=== PATIENT | male | born 1940 | race Caucasian/White ===

== ENCOUNTER 2016-10-09 08:21 | Inpatient (IN) | payer OTHER ==
[~2016-10-09] VITALS: Ht 180.3 cm; Wt 83.9 kg
--- NOTE | 2016-10-09 08:29 | ED MVC/FALL/TRAUMA COMPLAINT ---
History of Present Illness General Chief Complaint: Hip Injury Stated Complaint: BIBA HIP INJURY S/P FALL Source: patient Exam Limitations: no limitations Vital Signs & Intake/Output Vital Signs & Intake/Output Vital Signs Date Time Temp Pulse Resp B/P Pulse O2 O2 Flow FiO2 Ox Delivery Rate 10/09 1049 98.6 76 18 142/84 98 Room Air 10/09 0943 98.6 76 18 178/99 98 Room Air 10/09 0827 96.0 82 14 187/97 99 Room Air Allergies Coded Allergies: Penicillins (Severe, ANAPHYLAXIS 10/09/16) Reconcile Medications Amlodipine Besylate 5 MG TABLET 1 TAB PO DAILY HEART (Reported) Diazepam 5 MG TABLET 1 TAB PO BIDP PRN ANXIETY (Reported) Simvastatin (Simvastatin*) 20 MG TABLET 1 TAB PO DAILY CHOLESTEROL (Reported) Testosterone (Androgel) 40.5 MG/2.5 GRAM (1.62 %) GEL.PACKET 1 PAC TOP UNKNOWN (Reported) Zolpidem Tartrate 10 MG TABLET 1 TAB PO QPM SLEEP (Reported) Triage Nurses Notes Reviewed? yes Onset: Abrupt Duration: constant Timing: single episode today Severity: severe Severity Numbers: 10 Injuries/Fall Location: lower extremity HPI: Patient is a 75 year old male with a past medical history of anxiety, hypertension, hyperlipidemia, right hip replacement, left knee replacement who was in his normal state of health today patient states that he had a mechanical fall tripping on his rug in his private residence where he landed to the left aspect of his hip to the ground. Patient denies any preceding episode of lightheadedness or dizziness. Denies any head strike or loss of consciousness. Patient states that he's been unable to move his leg since. Patient crawled to the phone to call EMS. EMS arrived on scene and were concerned of shortening of the left leg for hip fracture. Patient denies any neck pain and headache back pain and abdominal pain Patient does that partially 5 weeks ago he had another mechanical fall where he twisted his left knee and his had mild pain since. Denies any alcohol use today (ALYSIA BOSS) Past History Travel History Traveled to [place] past 21 day No Medical History Any Pertinent Medical History? see below for history Neurological: NONE EENT: NONE Cardiovascular: hypertension Respiratory: NONE Gastrointestinal: NONE Hepatic: NONE Renal: NONE Musculoskeletal: NONE Psychiatric: anxiety, depression Endocrine: NONE Blood Disorders: NONE Cancer(s): NONE PROFESSOR OF GENETICS/Reproductive: NONE Surgical History Surgical History: RIGHT HIP REPLACEMENT, LEFT KNEE REPLACEMENT Psychosocial History What is your primary language B[place]wanan Tobacco Use: Quit >30 days ago Family History Hx Contributory? No (ALYSIA BOSS) Review of Systems Review of Systems Constitutional: Reports: no symptoms. Eyes: Reports: no symptoms. Ears, Nose, Throat, Mouth: Reports: no symptoms. Respiratory: Reports: no symptoms. Cardiovascular: Reports: no symptoms. Gastrointestinal/Abdominal: Reports: no symptoms. Genitourinary: Reports: no symptoms. Musculoskeletal: Reports: see HPI, joint pain. Skin: Reports: no symptoms. Neurological/Psychological: Reports: no symptoms. All Other Systems: Reviewed and Negative (ALYSIA BOSS) Physical Exam Physical Exam General Appearance: no apparent distress, alert, comfortable Comments: Well-developed well-nourished person in no acute distress HEENT: Normal EENT exam, Neck: Supple, no lymphadenopathy, normal range of motion without pain or tenderness No central spinous tenderness Back: Nontender, no CVA tenderness. No central spinous tenderness Cardiovascular: Regular rate and rhythms no murmurs rubs or gallops, normal JVP Respiratory: Chest nontender. No respiratory distress.breath sounds clear to auscultation bilaterally Abdomen: Soft, nontender nondistended, no appreciable organomegaly. Normal bowel sounds. No ascites Extremity: No edema, no calf tenderness to palpation, normal and equal pulses. Left leg noted shortening, dermatomes intact, pedal pulse +2 Left hip noted gross deformity and point tenderness unable to move hip Left knee-denies point tenderness noted Neuro: Alert oriented x3, motor sensory normal, cranial nerves II through XII grossly intact. Skin: No appreciable rash on exposed skin, skin is warm and dry. Psych: Mood and affect is normal, memory and judgment is normal. Core Measures ACS in differential dx? No Severe Sepsis Present: No Septic Shock Present: No (ALYSIA BOSS) Progress Differential Diagnosis: abd injury, C/T/L spine injury, ext injury, ICH, pelvis injury, pnemothorax, spinal cord injury, HIP FRACTURE Plan of Care: Orders Procedure Date/time Status PT Evaluate & Treat 10/10 1014 Active CBC WITHOUT DIFFERENTIAL 10/10 0600 Active BASIC ELECTROLYTES PLUS BUN&CR 10/10 0600 Active Nothing by Mouth 10/09 L Active Pathway - chart 10/09 1014 Active Patient Data 10/09 1014 Active Code Status 10/09 1014 Active Admit to inpatient 10/09 0951 Active PARTIAL THROMBOPLASTIN TIME 10/09 0828 Complete PROTHROMBIN TIME 10/09 0828 Complete COMPREHENSIVE METABOLIC PANEL 10/09 08 Complete CBC WITHOUT DIFFERENTIAL 10/09 0828 Complete EKG 10/09 08 Active TYPE & SCREEN (NOT X-MATCH) 10/09 0828 Complete Admit to inpatient 10/09 UNK Active Wound Care/Dressing 10/09 UNK Active VTE Mechanical Prophylaxis 10/09 UNK Active Vital Signs 10/09 UNK Active Heat/Cold Therapy 10/09 UNK Active Activity/Ambulation 10/09 UNK Active Current Medications Sig/Luis Start time Last Medication Dose Stop Time Status Admin Atorvastatin Calcium 10 MG 1700 10/10 1700 AC (Lipitor) Amlodipine Besylate 5 MG DAILY 10/10 1000 AC (Norvasc) Diazepam 5 MG Q12P PRN 10/09 2200 AC (Valium) Morphine Sulfate 4 MG Q3P PRN 10/09 1015 AC (Morphine) Ondansetron HCl 4 MG Q6P PRN 10/09 1015 AC (Zofran) Promethazine HCl 12.5 MG Q6P PRN 10/09 1015 AC (Phenergen) 10/16 1014 Laboratory Tests 10/09/16 0838: Anion Gap 11, Estimated GFR 59 L, BUN/Creatinine Ratio 16.7, Glucose 91, Calcium 9.5, Total Bilirubin 0.5, AST 27, ALT 29, Alkaline Phosphatase 95, Total Protein 7.8, Albumin 4.4, Globulin 3.4, Albumin/Globulin Ratio 1.3, PT 10.8, INR 1.03, APTT 33, CBC w Diff NO MAN DIFF REQ, RBC 4.77, MCV 90.0, MCH 30.2, RDW 13.0, MPV 7.8, Gran % 63.0, Lymphocytes % 24.6, Monocytes % 9.2, Eosinophils % 2.8, Basophils % 0.4, Absolute Granulocytes 5.0, Absolute Lymphocytes 1.9, Absolute Monocytes 0.7 H, Absolute Eosinophils 0.2, Absolute Basophils 0, PUBS MCHC 33.5 Patient's distal extremities were neurovascularly intact. Patient does have concerns of left hip fracture Denies any head strike denies any cervical or low back pain from the injury.\ Discussed admission with surgical KRISTA and orthopedic Dr. Suarez who advised patient to be placed under their service patient was advised to be placed under nothing by mouth medicine was consult at Patient is currently resting comfortably after multiple doses of morphine. (ALYSIA BOSS) Diagnostic Imaging: Viewed by Me: Radiology Read. Radiology Impression: fracture Initial ED EKG: normal p-waves, normal QRS complex, normal sinus rhythm, 87 BPM Comments: PATIENT: RAMY TRIVEDI PRESENT AGE: 75 PATIENT ACCOUNT NO: [id number] : 39 LOCATION: [facility] ORDERING PHYSICIAN: ALYSIA VELASCO SERVICE DATE: 10/09/16 EXAM TYPE: RAD - XRY-HIP 2-3 VIEWS, LEFT; XRY-KNEE COMPLETE LEFT; XRY-PORTABLE CHEST XRAY EXAMINATION: Chest, left hip and left knee. CLINICAL INFORMATION: Possible hip fracture. COMPARISON: None TECHNIQUE: Portable AP view of the chest was obtained. Left knee 2 views. Left hip 2 views. FINDINGS: CHEST: Both lungs are fairly well-expanded and clear of acute process. The heart size and pulmonary vascularity is normal. No gross bony abnormality seen. There are bilateral shoulder prosthesis in place. LEFT HIP: There is a comminuted intertrochanteric left hip fracture. No dislocation. The soft tissues are normal. No additional fracture of the left hemipelvis. LEFT KNEE: There is total left knee prosthesis with prosthetic components in satisfactory alignment. No visible fracture. There is small to moderate suprapatellar joint effusion. IMPRESSION: Comminuted left hip intertrochanteric fracture. No dislocation. Total left knee prosthesis in alignment. No fracture seen. There is [id number] left suprapatellar joint effusion. Unremarkable chest exam. DICTATED BY: PERLITA GODFREY MD DATE/TIME DICTATED:10/09/16922 TAPPER BALANCE WHEEL SCREW HOLE:SYEDA DATE/TIME TRANSCRIBED:10/09/16922 (ALYSIA BOSS) Departure Departure Disposition: STILL A PATIENT Condition: Stable Clinical Impression Primary Impression: Intertrochanteric fracture of left hip Secondary Impressions: Fall Referrals: JAY WINSLOW MD Departure Forms: Customer Survey General Discharge Information Admission Note Spoke With: FARZANEH SUAREZ MD Documentation of Exam: Documentation of any treatments & extenuating circumstances including Concerns Regarding Discharge (functional status, medication knowledge or non-compliance, living conditions, etc.) that warrant an admission rather than observation: [ Discussed patient with Dr. Suarez who advised patient to be placed under her service for concerns of left intratrochanteric fracture patient requires surgical intervention, IV pain management, and possible rehabilitation. Outpatient treatment at this time would be medically harmful.] (ALYSIA BOSS) PA/SEAFOOD FARMER Co-Sign Statement Statement: ED Attending supervision documentation- [X] I saw and evaluated the patient. I have also reviewed all the pertinent lab results and diagnostic results. I agree with the findings and the plan of care as documented in the PA's/SEAFOOD FARMER's documentation. [X] I have reviewed the ED Record and agree with the PA's/SEAFOOD FARMER's documentation. [] Additions or exceptions (if any) to the PAs/SEAFOOD FARMER's note and plan are summarized below: [] (ALYSSA ZENDEJAS,DAYRON Jj) Critical Care Note Critical Care Note Critical Care Time: 30-74 min (ALYSIA BOSS) (ALYSIA BOSS)
--- NOTE | 2016-10-09 08:38 | NUR ---
75 Y/O MALE BIBA FROM HOME FOR EVAL OF L HIP PAIN S/P FALL. PT ARRIVES A/O X 4; STATES HE TRIPPED THIS MORNING AND FELL ONTO L SIDE. C/O L HIP PAIN. DENIES STRIKING HEAD OR LOC. L LOWER EXTERMITY EXTERNALLY ROTATED AND SHORTENED. +PULSES. PT DENIES COMPLAINTS OTHER THAN L HIP PAIN PT CHANGED INTO [facility] INTO EVAL.
--- NOTE | 2016-10-09 08:42 | NUR ---
IV EST. PT MEDICATED PER EMAR AT THIS TIME. PT TO XRAY VIA STRETCHER
[2016-10-09 08:46] LABS: ABSOLUTE BASOPHIL COUNT 0 /CUMM (0.0-0.2); ABSOLUTE EOSINOPHIL COUNT 0.2 /CUMM (0.0-0.7); ABSOLUTE LYMPH COUNT 1.9 /CUMM (1.2-3.4); ABSOLUTE MONOCYTE COUNT 0.7 /CUMM (0.10-0.60); BASOPHIL % 0.4 % (0.0-2.0); EOSINOPHIL % 2.8 % (0-5); HEMATOCRIT 42.9 % (42-52); MEAN CORPUSCULAR HGB 30.2 PG (27.0-31.0); MEAN CORPUSCULAR HGB CONC 33.5 G/DL (33.0-37.0); MEAN PLATELET VOLUME 7.8 FL (7.4-10.4); PLATELET COUNT 221 /CUMM (130-400); RED BLOOD CELL CT 4.77 /CUMM (4.70-6.10); WHITE BLOOD CELL COUNT 7.9 /CUMM (4.8-10.8)
[2016-10-09 08:55] LABS: PT 10.8 SEC (9.4-12.5); PTT 33 SEC (25-37)
--- NOTE | 2016-10-09 09:13 | NUR ---
PT MEDICATED WITH 6MG IV MORPHINE PER ORDER AT THIS TIME. PT STATES PAIN IS 9/10.
[2016-10-09] MEDS ORDERED: DIAZEPAM5 M1 PO (09:15)
[2016-10-09] MEDS ORDERED: SIMVASTATIN20 M2 PO (09:15)
[2016-10-09] MEDS ORDERED: ANDROGEL2.5 G1 TOP (09:15)
[2016-10-09] MEDS ORDERED: AMLODIPINE BESYL5 M1 PO (09:15)
[2016-10-09] MEDS ORDERED: ZOLPIDEM TARTRA10 M1 PO (09:16)
--- NOTE | 2016-10-09 09:29 | RADIOLOGY REPORT ---
EXAMINATION: Chest, left hip and left knee. CLINICAL INFORMATION: Possible hip fracture. COMPARISON: None TECHNIQUE: Portable AP view of the chest was obtained. Left knee 2 views. Left hip 2 views. FINDINGS: CHEST: Both lungs are fairly well-expanded and clear of acute process. The heart size and pulmonary vascularity is normal. No gross bony abnormality seen. There are bilateral shoulder prosthesis in place. LEFT HIP: There is a comminuted intertrochanteric left hip fracture. No dislocation. The soft tissues are normal. No additional fracture of the left hemipelvis. LEFT KNEE: There is total left knee prosthesis with prosthetic components in satisfactory alignment. No visible fracture. There is small to moderate suprapatellar joint effusion. IMPRESSION: Comminuted left hip intertrochanteric fracture. No dislocation. Total left knee prosthesis in alignment. No fracture seen. There is egqqe-oc-[id number] left suprapatellar joint effusion. Unremarkable chest exam.
--- NOTE | 2016-10-09 09:34 | NUR ---
SURGICAL PA AT BEDSIDE FOR EVAL
--- NOTE | 2016-10-09 09:42 | NUR ---
PT MEDICATED WITH ADDITIONAL 4MG MORHPINE PER ORDER AT THIS TIME. BP 179/99. SURGICAL PA REMAINS AT BEDSIDE.
--- NOTE | 2016-10-09 10:37 | History & Physical Pre-Op ---
DONNA TINOCO 10/09/16 1017: General Information and HPI MD Statement: I have seen and personally examined RAMY TRIVEDI and documented this H&P. The patient is a 75 year old M who presented with a patient stated chief complaint of [LEFT HIP PAIN S/P FALL]. Source of Information: patient, old records History of Present Illness: Patient is a 75 year old male with a past medical history of anxiety, hypertension, hyperlipidemia, right hip replacement, left knee replacement, bilateral total shoulder replacements, cervical and lumbar spinal fusions, who was in his normal state of health today. Patient states that he had a mechanical fall tripping on his rug in his private residence where he landed to the left aspect of his hip to the ground. Patient denies any preceding episode of lightheadedness or dizziness. Denies any head strike or loss of consciousness. Patient states that he's been unable to move his leg since. Patient crawled to the phone to call EMS. EMS arrived on scene and were concerned of shortening of the left leg for hip fracture. Patient denies any neck pain and headache back pain and abdominal pain. Patient does note that approximately 5 weeks ago he had another mechanical fall where he twisted his left knee and his had mild pain since. He notes instability to his left knee on occasion but states that he had multiple evaluations by both an urgent care where xrays were obtained and an orthopedic surgeon who ruled out any instability to the knee and ruled out any need for futher intervention. His last by mouth intake was 6am this morning. He denies any alcohol use today. Allergies/Medications Allergies: Coded Allergies: Penicillins (Severe, ANAPHYLAXIS 10/09/16) Home Med list Amlodipine Besylate 5 MG TABLET 1 TAB PO DAILY HEART (Reported) Diazepam 5 MG TABLET 1 TAB PO BIDP PRN ANXIETY (Reported) Simvastatin (Simvastatin*) 20 MG TABLET 1 TAB PO DAILY CHOLESTEROL (Reported) Testosterone (Androgel) 40.5 MG/2.5 GRAM (1.62 %) GEL.PACKET 1 PAC TOP UNKNOWN (Reported) Zolpidem Tartrate 10 MG TABLET 1 TAB PO QPM SLEEP (Reported) Past History Medical History Neurological: NONE EENT: NONE Cardiovascular: hypertension, hyperlipidemia Respiratory: NONE Gastrointestinal: NONE Hepatic: NONE Renal: NONE Musculoskeletal: NONE Psychiatric: anxiety, depression Endocrine: NONE Blood Disorders: NONE Cancer(s): NONE CAUSE ANALYST/Reproductive: NONE Surgical History Pertinent Surgical History: spinal fusion, RIGHT HIP REPLACEMENT LEFT KNEE REPLACEMENT, Bilateral Shoulder Replacements Review of Systems Review of Systems Constitutional: Reports: see HPI. Denies: weakness. EENTM: Reports: no symptoms. Cardiovascular: Reports: no symptoms. Denies: chest pain, palpitations, syncope. Respiratory: Reports: no symptoms. GI: Reports: no symptoms. Genitourinary: Reports: no symptoms. Musculoskeletal: Reports: see HPI. Skin: Reports: no symptoms. Neurological/Psychological: Reports: anxiety, depressed. Hematologic/Endocrine: Reports: no symptoms. Immunologic/Allergic: Reports: no symptoms. All Other Systems: Reviewed and Negative Exam & Diagnostic Data Last 24 Hrs of Vital Signs/I&O Vital Signs Date Time Temp Pulse Resp B/P Pulse O2 O2 Flow FiO2 Ox Delivery Rate 10/09 0943 98.6 76 18 178/99 98 Room Air 10/09 0827 96.0 82 14 187/97 99 Room Air Intake & Output 10/09 1600 10/09 0800 10/09 0000 Intake Total Output Total Balance Patient 185 lb Weight Physical Exam: General: Alert and oriented x3, no acute distress Cardiac: RRR, s1s2 Pulmonary: CTA bilaterally Abdomen: Non-tender, non-distended Extremities: Left leg shortened and internally rotated, distal senstions intact. Skin warm and well perfused, no peripheral edema appreciated. Left knee mild effusion palpated. Last 24 Hrs of Labs/Delon: Laboratory Tests 10/09/16 0838: Anion Gap 11, Estimated GFR 59 L, BUN/Creatinine Ratio 16.7, Glucose 91, Calcium 9.5, Total Bilirubin 0.5, AST 27, ALT 29, Alkaline Phosphatase 95, Total Protein 7.8, Albumin 4.4, Globulin 3.4, Albumin/Globulin Ratio 1.3, PT 10.8, INR 1.03, APTT 33, CBC w Diff NO MAN DIFF REQ, RBC 4.77, MCV 90.0, MCH 30.2, RDW 13.0, MPV 7.8, Gran % 63.0, Lymphocytes % 24.6, Monocytes % 9.2, Eosinophils % 2.8, Basophils % 0.4, Absolute Granulocytes 5.0, Absolute Lymphocytes 1.9, Absolute Monocytes 0.7 H, Absolute Eosinophils 0.2, Absolute Basophils 0, PUBS MCHC 33.5 Diagnostic Data Other Results HIP XRAY: PATIENT: RAMY TRIVEDI PRESENT AGE: 75 PATIENT ACCOUNT NO: [id number] : 39 LOCATION: ER ORDERING PHYSICIAN: ALYSIA VELASCO SERVICE DATE: 10/09/16 EXAM TYPE: RAD - XRY-HIP 2-3 VIEWS, LEFT; XRY-KNEE COMPLETE LEFT; XRY-PORTABLE CHEST XRAY EXAMINATION: Chest, left hip and left knee. CLINICAL INFORMATION: Possible hip fracture. COMPARISON: None TECHNIQUE: Portable AP view of the chest was obtained. Left knee 2 views. Left hip 2 views. FINDINGS: CHEST: Both lungs are fairly well-expanded and clear of acute process. The heart size and pulmonary vascularity is normal. No gross bony abnormality seen. There are bilateral shoulder prosthesis in place. LEFT HIP: There is a comminuted intertrochanteric left hip fracture. No dislocation. The soft tissues are normal. No additional fracture of the left hemipelvis. LEFT KNEE: There is total left knee prosthesis with prosthetic components in satisfactory alignment. No visible fracture. There is small to moderate suprapatellar joint effusion. IMPRESSION: Comminuted left hip intertrochanteric fracture. No dislocation. Total left knee prosthesis in alignment. No fracture seen. There is mshqt-[id number] left suprapatellar joint effusion. Unremarkable chest exam. DICTATED BY: PERLITA GODFREY MD DATE/TIME DICTATED:10/09/16922 TIP FINISHER:SYEDA DATE/TIME TRANSCRIBED:10/09/16922 CONFIDENTIAL, DO NOT COPY WITHOUT APPROPRIATE AUTHORIZATION. <Electronically signed in Other Vendor System> SIGNED BY: PERLITA GODFREY MD 10/09/16928 KNEE XRAY: PATIENT: RAMY TRIVEDI PRESENT AGE: 75 PATIENT ACCOUNT NO: [id number] : 39 LOCATION: [facility] ORDERING PHYSICIAN: ALYSIA VELASCO SERVICE DATE: 10/09/16 EXAM TYPE: RAD - XRY-HIP 2-3 VIEWS, LEFT; XRY-KNEE COMPLETE LEFT; XRY-PORTABLE CHEST XRAY EXAMINATION: Chest, left hip and left knee. CLINICAL INFORMATION: Possible hip fracture. COMPARISON: None TECHNIQUE: Portable AP view of the chest was obtained. Left knee 2 views. Left hip 2 views. FINDINGS: CHEST: Both lungs are fairly well-expanded and clear of acute process. The heart size and pulmonary vascularity is normal. No gross bony abnormality seen. There are bilateral shoulder prosthesis in place. LEFT HIP: There is a comminuted intertrochanteric left hip fracture. No dislocation. The soft tissues are normal. No additional fracture of the left hemipelvis. LEFT KNEE: There is total left knee prosthesis with prosthetic components in satisfactory alignment. No visible fracture. There is small to moderate suprapatellar joint effusion. IMPRESSION: Comminuted left hip intertrochanteric fracture. No dislocation. Total left knee prosthesis in alignment. No fracture seen. There is qbhbt-md-bqrtdnbm left suprapatellar joint effusion. Unremarkable chest exam. CHEST XRAY: PATIENT: RAMY TRIVEDI PRESENT AGE: 75 PATIENT ACCOUNT NO: [id number] : 39 LOCATION: [facility] ORDERING PHYSICIAN: ALYSIA VELASCO SERVICE DATE: 10/09/16 EXAM TYPE: RAD - XRY-HIP 2-3 VIEWS, LEFT; XRY-KNEE COMPLETE LEFT; XRY-PORTABLE CHEST XRAY EXAMINATION: Chest, left hip and left knee. CLINICAL INFORMATION: Possible hip fracture. COMPARISON: None TECHNIQUE: Portable AP view of the chest was obtained. Left knee 2 views. Left hip 2 views. FINDINGS: CHEST: Both lungs are fairly well-expanded and clear of acute process. The heart size and pulmonary vascularity is normal. No gross bony abnormality seen. There are bilateral shoulder prosthesis in place. LEFT HIP: There is a comminuted intertrochanteric left hip fracture. No dislocation. The soft tissues are normal. No additional fracture of the left hemipelvis. LEFT KNEE: There is total left knee prosthesis with prosthetic components in satisfactory alignment. No visible fracture. There is small to moderate suprapatellar joint effusion. IMPRESSION: Comminuted left hip intertrochanteric fracture. No dislocation. Total left knee prosthesis in alignment. No fracture seen. There is rnsvj-[id number]-tnbbpjep left suprapatellar joint effusion. Unremarkable chest exam. DICTATED BY: PERLITA GODFREY MD DATE/TIME DICTATED:10/09/16922 TIP FINISHER:SYEDA DATE/TIME TRANSCRIBED:10/09/16922 CONFIDENTIAL, DO NOT COPY WITHOUT APPROPRIATE AUTHORIZATION. <Electronically signed in Other Vendor System> SIGNED BY: EPIFANIO ZENDEJASPERLITA 10/09/16 0929 Assessment/Plan Assessment/Plan: This is a 75 year old male admitted to surgical service today with complaints of left hip pain s/p mechanical fall and intertrochanteric fracture. PMH includes HTN, HLD, Anxiety, Depression. PSH includes left knee replacement, right hip replacement, bilateral shoulder replacements, and lumbar and cervical spinal fusions. -NPO -Home meds to continue post op -IV morphine and offirmev for pain control for now -stat type and screen -pre-op chest xray and ekg -Medical clearance needed, Dr. Mcfarland contacted -Discussed with Dr. Duran -Dr Duran to do ORIF likely this evening, possibly tomorrow am pending medical clearance As Ranked By This Provider Problem List: 1. Intertrochanteric fracture of left hip ERICK ZENDEJAS,FARZANEH 10/09/162043: Attending MD Review Statement Attending Statement Attending MD Statement: examined this patient, discuss w/resident/PA/BRAND REPRESENTATIVE, agreed w/resident/PA/BRAND REPRESENTATIVE, reviewed images Attending Assessment/Plan: Patient seen and examined. Acute left hip pain, but also complains of chronic left knee pain for several weeks (has previously been seen twice by treating Orthopedic without intervention). Plan for ORIF left hip with sliding hip screw/side plate. Will need post-op anticoagulation and monitoring.
--- NOTE | 2016-10-09 10:38 | Admission Core Measures ---
Admission Lab Results I reviewed the following labs: Laboratory Tests 10/09 0838 Chemistry Sodium (137 - 145 mmol/L) 137 Potassium (3.5 - 5.1 mmol/L) 4.4 Chloride (98 - 107 mmol/L) 100 Carbon Dioxide (22 - 30 mmol/L) 25 Anion Gap (5 - 16) 11 BUN (9 - 20 mg/dL) 20 Creatinine (0.7 - 1.2 mg/dL) 1.2 Estimated GFR (>60 ml/min) 59 L BUN/Creatinine Ratio (7 - 25 %) 16.7 Glucose (65 - 99 mg/dL) 91 Calcium (8.4 - 10.2 mg/dL) 9.5 Total Bilirubin (0.2 - 1.3 mg/dL) 0.5 AST (17 - 59 U/L) 27 ALT (21 - 72 U/L) 29 Alkaline Phosphatase (< 127 U/L) 95 Total Protein (6.3 - 8.2 g/dL) 7.8 Albumin (3.5 - 5.0 g/dL) 4.4 Globulin (1.9 - 4.2 gm/dL) 3.4 Albumin/Globulin Ratio (1.1 - 2.2 %) 1.3 Coagulation PT (9.4 - 12.5 SEC) 10.8 INR (0.90 - 1.17) 1.03 APTT (25 - 37 SEC) 33 Hematology CBC w Diff NO MAN DIFF REQ WBC (4.8 - 10.8 /CUMM) 7.9 RBC (4.70 - 6.10 /CUMM) 4.77 Hgb (14.0 - 18.0 G/DL) 14.4 Hct (42 - 52 %) 42.9 MCV (80.0 - 94.0 FL) 90.0 MCH (27.0 - 31.0 PG) 30.2 RDW (11.5 - 14.5 %) 13.0 Plt Count (130 - 400 /CUMM) 221 MPV (7.4 - 10.4 FL) 7.8 Gran % (42.2 - 75.2 %) 63.0 Lymphocytes % (20.5 - 51.1 %) 24.6 Monocytes % (1.7 - 9.3 %) 9.2 Eosinophils % (0 - 5 %) 2.8 Basophils % (0.0 - 2.0 %) 0.4 Absolute Granulocytes (1.4 - 6.5 /CUMM) 5.0 Absolute Lymphocytes (1.2 - 3.4 /CUMM) 1.9 Absolute Monocytes (0.10 - 0.60 /CUMM) 0.7 H Absolute Eosinophils (0.0 - 0.7 /CUMM) 0.2 Absolute Basophils (0.0 - 0.2 /CUMM) 0 PUBS MCHC (33.0 - 37.0 G/DL) 33.5 Admission Meds I reviewed the following Meds: Current Medications Sig/Luis Start time Last Medication Dose Stop Time Status Admin Acetaminophen 1,000 MG Q6P PRN 10/09 1015 UNVr (Ofirmev) 10/10 1007 Amlodipine Besylate 5 MG DAILY 10/10 1000 UNVr (Norvasc) Amlodipine Besylate 5 MG ONCE ONE 10/09 1030 UNVr (Norvasc) 10/09 1031 Atorvastatin Calcium 10 MG 1700 10/10 1700 UNVr (Lipitor) Diazepam 5 MG Q12P PRN 10/09 2200 UNVr (Valium) Morphine Sulfate 4 MG Q3P PRN 10/09 1015 UNVr (Morphine) Ondansetron HCl 4 MG Q6P PRN 10/09 1015 AC (Zofran) Promethazine HCl 12.5 MG Q6P PRN 10/09 1015 AC (Phenergen) 10/16 1014 Sodium Chloride 1,000 ML .Q10H 10/09 1015 UNVr (Normal Saline 0.9%) Acute Coronary Syndrome Inclusion Criteria ACS Diagnosis No Inpatient Core Measures LDL Reminder: If No, please order W/I first 24hr of stay Congestive Heart Failure Inclusion Criteria CHF Diagnosis No Cerebrovascular accident Inclusion Criteria CVA/TIA Diagnosis No Inpatient Core Measures Bedside Swallow Eval Reminder: If BSE failed, place ST order Antithrombotic Reminder: Order Antithrombotic Medication by end of day 2 Antithrombotic Reminder: Document Reason Antithrombotic Not ordered by end of day 2 AFIB/Flutter Reminder: If Present, add to problem list AFIB/Flutter Reminder: Order Anticoag Medication for pts with AFIB/Flutter Atherosclerosis Reminder: If Present, add to problem list LDL Reminder: If No, please order W/I first 24hr of stay PT Order Reminder: If No, please order Venous thromboembolism Inpatient Core Measures VTE Risk Factors: Age > 40, Surgery No Mech VTE prophylaxis d/t No contraindications No VTE Pharm Prophylaxis d/t No contraindications Inclusion Criteria - Per Current guidelines, there needs to be overlap - treatment for the first 5 days of Warfarin therapy. - Parenteral Anticoagulation (IV or SC) needs to be - given along with Warfarin therapy. VTE Diagnosis No VTE Type NONE VTE Confirmed by (Test) NONE Problem List As ranked by this Provider includes Assessment & Plan 1. Intertrochanteric fracture of left hip HOME MEDS Home Med List Amlodipine Besylate 5 MG TABLET 1 TAB PO DAILY HEART (Reported) Diazepam 5 MG TABLET 1 TAB PO BIDP PRN ANXIETY (Reported) Simvastatin (Simvastatin*) 20 MG TABLET 1 TAB PO DAILY CHOLESTEROL (Reported) Zolpidem Tartrate 10 MG TABLET 1 TAB PO QPM SLEEP (Reported)
--- NOTE | 2016-10-09 10:40 | NUR ---
NORMAL SALINE INFUSING AT 100ML/HR PER ORDER AT THIS TIME. PT AWARE HE IS TO REMAINS NPO AT THIS TIME. PT STATES PAIN LEVEL IS TOLERABLE RIGHT NOW. CALL BRYAN IN REACH.
--- NOTE | 2016-10-09 10:55 | Cons- Medical ---
General Information and HPI Consulting Request Date of Consult: 10/09/16 Requested By: FARZANEH SUAREZ MD Reason for Consult: PRE-OP CLEARANCE Source of Information: patient, old records Exam Limitations: no limitations History of Present Illness: This is a 75-year-old gentleman with a past history significant for hypertension , hyperlipidemia, anxiety that presented to the emergency room today after having a mechanical fall over an area rug. States that he fell on his left hip. Denies any syncope, head strike or loss of consciousness. Denies any chest pain shortness of breath, nausea, vomiting, diarrhea fevers chills recent illnesses or sick contacts. He states that last year he had his left knee operated with a prosthesis and slipped and fell on black ice about 5 weeks ago. Subsequently he went to his orthopedic surgeon Dr. Keating who took x-rays and stated that everything was okay. The medicine team today was asked to see the patient in consultation and risk stratify him prior to surgery. Allergies/Medications Allergies: Coded Allergies: Penicillins (Severe, ANAPHYLAXIS 10/09/16) Home Med List: Amlodipine Besylate 5 MG TABLET 1 TAB PO DAILY HEART (Reported) Diazepam 5 MG TABLET 1 TAB PO BIDP PRN ANXIETY (Reported) Simvastatin (Simvastatin*) 20 MG TABLET 1 TAB PO DAILY CHOLESTEROL (Reported) Testosterone (Androgel) 40.5 MG/2.5 GRAM (1.62 %) GEL.PACKET 1 PAC TOP UNKNOWN (Reported) Zolpidem Tartrate 10 MG TABLET 1 TAB PO QPM SLEEP (Reported) Review of Systems Review of Systems Constitutional: Reports: see HPI. Past History Travel History Traveled to [place] past 21 day No Medical History Neurological: NONE EENT: NONE Cardiovascular: hypertension, hyperlipidemia Respiratory: NONE Gastrointestinal: NONE Hepatic: NONE Renal: NONE Musculoskeletal: NONE Psychiatric: anxiety, depression Endocrine: NONE Blood Disorders: NONE Cancer(s): NONE REGISTERED NURSE CARDIAC/Reproductive: NONE Surgical History Surgical History: spinal fusion, RIGHT HIP REPLACEMENT LEFT KNEE REPLACEMENT Bilateral Shoulder Replacements Psychosocial History Where Do You Live? Home Who Do You Live With? self Services at Home: None Primary Language: Persian Smoking Status: Former Smoker ETOH Use: occasional use Functional Ability ADLs Independent: dressing, eating, toileting, bathing. IADLs Independent: shopping, housework, finances, food prep, telephone, transportation , medication admin. Exam & Diagnostic Data Last 24 Hrs of Vital Signs/I&O Vital Signs Date Time Temp Pulse Resp B/P Pulse O2 O2 Flow FiO2 Ox Delivery Rate 10/09 1049 98.6 76 18 142/84 98 Room Air 10/09 0943 98.6 76 18 178/99 98 Room Air 10/09 0827 96.0 82 14 187/97 99 Room Air Intake & Output 10/09 1600 10/09 0800 10/09 0000 Intake Total Output Total Balance Patient 185 lb Weight Physical Exam General Appearance: well developed/nourished, no apparent distress, alert, awake Head: atraumatic, normal appearance Ears, Nose, Throat: normal pharynx, normal ENT inspection, hearing grossly normal Respiratory: normal breath sounds, chest non-tender, no respiratory distress Cardiovascular: regular rate/rhythm, edema Gastrointestinal: normal bowel sounds, soft, non-tender Extremities: normal inspection, normal capillary refill, left lower extremity shortened and externally rotated Last 24 Hrs of Labs/Delon: Laboratory Tests 10/09/16 0838: Anion Gap 11, Estimated GFR 59 L, BUN/Creatinine Ratio 16.7, Glucose 91, Calcium 9.5, Total Bilirubin 0.5, AST 27, ALT 29, Alkaline Phosphatase 95, Total Protein 7.8, Albumin 4.4, Globulin 3.4, Albumin/Globulin Ratio 1.3, PT 10.8, INR 1.03, APTT 33, CBC w Diff NO MAN DIFF REQ, RBC 4.77, MCV 90.0, MCH 30.2, RDW 13.0, MPV 7.8, Gran % 63.0, Lymphocytes % 24.6, Monocytes % 9.2, Eosinophils % 2.8, Basophils % 0.4, Absolute Granulocytes 5.0, Absolute Lymphocytes 1.9, Absolute Monocytes 0.7 H, Absolute Eosinophils 0.2, Absolute Basophils 0, PUBS MCHC 33.5 Diagnostic Data EKG Results Normal sinus rhythm, first-degree AV block, LVH CXR Results X-ray hip knee total chest IMPRESSION: Comminuted left hip intertrochanteric fracture. No dislocation. Total left knee prosthesis in alignment. No fracture seen. There is [id number] left suprapatellar joint effusion. Unremarkable chest exam. Assessment/Plan Assessment/Plan Assessment- 1. Left intertrochanteric hip fracture status post mechanical fall 2. Hypertension 3. Hyperlipidemia Plan- - Patient's revised cardiac risk index 0.4% risk of major cardiac event; cleared for surgery - Continue all his home meds; - Maintain adequate analgesia per orthopedic team - Antiemetics when necessary - Aggressive bowel regiment given the fact that he will be on narcotic pain medication - Nothing by mouth at present for surgery - DVT prophylaxis per orthopedic team Please notify the medicine service if further assistance is required in caring for Mr. Burton. Problem List: 1. Fall 2. Intertrochanteric fracture of left hip Consult Acknowledgment - Thank you for your consult request.
--- NOTE | 2016-10-09 11:18 | NUR ---
IV TYLENOL INFUSING PER ORDER AT THIS TIME.
--- NOTE | 2016-10-09 11:29 | NUR ---
PHYSICAL THERAPY: Recieved consult orders, reviewed chart. Patient s/p mechanical fall at home with resultant L hip fracture. Per medical record, anticipated ORIF procedure to be performed later today. Physical therapy to complete evaluation s/p PODx1 w/ TTWB. Will f/u when appropriate.
--- NOTE | 2016-10-09 12:18 | NUR ---
PT RESTING ON STRETCHER AT THIS TIME. OFFERS NO COMPLAINTS. CALL BRYAN REMAINS IN REACH
[2016-10-09 13:00] VITALS: BP 105/69
--- NOTE | 2016-10-09 13:15 | NUR ---
PT MEDICATED WITH MORPHINE PER ORDER AT THIS TIME. PT REMAINS RESTING ON STRETCHER.
--- NOTE | 2016-10-09 16:54 | NUR ---
CHART READY FOR OR, PRE OP SCRUB IN PROGRESS AT THIS TIME. PT AWARE DISTRIBUTION WILL BE HERE IN APPROX 20 MINUTES TO TAKE HIM TO OR.
--- NOTE | 2016-10-09 17:27 | NUR ---
DISTRIBUTION HERE TO TAKE PT TO OR
--- NOTE | 2016-10-09 21:09 | Operative Report ---
Operative/Inv Procedure Report Surgery Date: 10/09/16 Name of Procedure: Left hip open reduction and stabilization with dynamic hip screw/side plate Pre-Operative Diagnosis: Left intertrochanteric hip fracture Post-Operative Diagnosis: Left intertrochanteric hip fracture Estimated Blood Loss: 250mL Surgeon/Paper Mill Supervisor: FARZANEH SUAREZ MD, PA-C, Mitch Anesthesia: laryngeal mask airway Implants: Synthes 135deg, 4-hole DHS plate Drains: None Specimens: None Complications: None Condition: Stable Operative/Procedure Note Note: INDICATION FOR PROCEDURE: Tomer Burton is a 75 year old male who presented to the [facility] following a mechanical ground level fall at home. He was found to have a left intertrochanteric hip fracture. He was evaluated by the medical staff prior to surgical intervention, and was deemed optimized for open reduction and stabilization of the left hip fracture. The risks, benefits, and alternatives were discussed with patient, and he consented to surgery. OPERATIVE REPORT: Mr. Burton was brought to the operating room on 10/09/2016. He was met in the pre-operaive area, where his medical history was reviewed and his operative extremity was marked. He was then taken to the OR. A time-out procedure was performed in which the patient, the operative extremity, and the procedure were verified. He was induced under general anesthesia with an LMA. Clindamycin was administered and an SCD was placed on the non-operative extremity. The patient was positioned on the fracture table around a perineal post. The left foot was secured in a well-padded traction boot. The right leg was placed over a well-leg hold in flexion and abduction and secured. Gentle traction was applied to the left leg and the leg was internally rotated. The hip was then examined with fluoroscopy on the AP and lateral views to verify the reduction. The left hip was then prepped with chloroprep twice and draped in the usual sterile fashion. Fluoroscopy was used to confirm the fracture reduction and bony landmarks. A 5cm incision was made over the lateral aspect of the tight, just below the trochanteric ridge. This was taken through the skin and subcutaneous tissues. The tensor fascia was indentified and split. The vastus lateralis was then divided and lifted anteriorly for exposure to the lateral aspect of the femur. A guide and threaded K-wire were then used to mery the trajectory of the screw. The position of the wire was verified on the AP and lateral views as it crossed the fracture and passed into the femoral head, ending in the subchondral bone. The wire was then measure at 120mm. A triple reamer set at 100mm was then taken over the wire and visualize under fluoroscopy. The reamer was then reset to 105mm and reamed again. A 110mm screw was then selected and screw into place across the fracture and along the femoral neck. Care was taken not to displace the fracture while turning the screw into place. The screw was taken down near the subchondral bone within 10mm. The 4-hole side plate was then placed over the screw barrell and tapped down until flush with the bone. The plate position was verified with AP and lateral views using fluoroscopy. Four 4.5mm cortical screws were then placed from lateral to medial across the femoral shaft, securing the plate into position. All four screws has excellent purchase in the cortical bone. Final xrays were obtained. The wound was then copiously irrigated with saline. The facia parul was closed over the vastus lateralis with 0 vicryl. The wound was then closed in layers using 0 vicryl and 2-0 vicryl, followed by bill for skin. The wound was dressed with xeroform and gauze, and secured with tegaderm. The patient's legs were removed from the traction apparatus and well-leg baez. He was extubated and moved from the OR bed to the hospital bed. He was then taken to the recovery room in stable condition.
[2016-10-09 22:00] VITALS: BP 114/70
--- NOTE | 2016-10-09 22:09 | RADIOLOGY REPORT ---
EXAMINATION: INTRAOPERATIVE FLUOROSCOPIC GUIDANCE AND LEFT HIP CLINICAL INFORMATION: Left hip fracture. Internal fixation. COMPARISON: Same day left hip radiographs. TECHNIQUE: Fluoroscopic time was utilized in the OR for Dr. Dr. Duran. Fluoroscopic images were obtained in AP and lateral projections. FINDINGS: Fluoroscopic guidance was provided during reduction and pinning of a left femoral neck fracture. On the final images, hardware is intact. Alignment is adequate. A left dynamic hip screw is in place. FLUOROSCOPY TIME: 81 seconds of fluoroscopic time was utilized for the entirety of this examination. IMPRESSION: Fluoroscopic guidance was provided during reduction and pinning of a left femoral neck fracture. On the final images, hardware is intact. Alignment is adequate. A left dynamic hip screw is in place.
--- NOTE | 2016-10-09 23:35 | NUR ---
PATIENT ARRIVED TO THE FLOOR AT 2130. PATIENT WAS CONFUSED AND STATED "I NEED TO GO HOME". I EXPLAINED TO THE PATIENT THAT HE IS IN [facility] AND HE HAD INTERTROCH FX TO LEFT HIP UNDER GENERAL ANESTHESIA. PATIENT UNWILLING TO ANSWER QUESTIONS TO COMPLETE THE ADMISSION. VSS: BP 114/70, PULSE 89, TEMP 98.1, O2 95% RA, RESP 16. FALL RISK PRECAUTION IN PLACE DUE TO CONFUSION. BED ALARM ON. LIANA CRAWFORD AND KRISTINA FARFAN PA WERE NOTIFIED. WILL CONTINUE TO MONITOR.
[2016-10-10] VITALS (8 sets, daily range): BP systolic 96–125; BP diastolic 60–70
--- NOTE | 2016-10-10 02:21 | NUR ---
AT 0145 PATIENT BECAME ORIENTED. NO LONGER SEDATED. HE WAS COOPERATIVE AND CALM. PATIENT C/O PAIN TO LEFT HIP. IV TYLENOL GIVEN PER EMAR. WILL CONTINUE TO MONITOR.
[2016-10-10 07:46] LABS: ABSOLUTE BASOPHIL COUNT 0 /CUMM (0.0-0.2); ABSOLUTE EOSINOPHIL COUNT 0 /CUMM (0.0-0.7); ABSOLUTE LYMPH COUNT 0.8 /CUMM (1.2-3.4); BASOPHIL % 0 % (0.0-2.0); EOSINOPHIL % 0 % (0-5); MEAN PLATELET VOLUME 8.4 FL (7.4-10.4)
[2016-10-10 08:15] LABS: ABSOLUTE MONOCYTE COUNT 0.9 /CUMM (0.10-0.60); GRANULOCYTE % 86.4 % (42.2-75.2); MEAN CORPUSCULAR HGB 30.2 PG (27.0-31.0); MEAN CORPUSCULAR HGB CONC 33.4 G/DL (33.0-37.0); MEAN CORPUSCULAR VOLUME 90.5 FL (80.0-94.0); PLATELET COUNT 188 /CUMM (130-400); RBC DISTRIBUTION WIDTH 13.6 % (11.5-14.5)
[2016-10-10 08:20] LABS: HEMATOCRIT 32.6 % (42-52)
--- NOTE | 2016-10-10 08:27 | PN- Orthopedic ---
See Addendum Subjective Subjective: No acute overnight events reported. Patient complaining of stomach discomfort and states that he has been unable to pass flatus. Denies nausea and vomitting. Denies chest pain, shortness of breath and difficulty breathing. States that pain/discomfort has been responding well to morphine Objective Vital Signs and I&Os Vital Signs Date Time Temp Pulse Resp B/P Pulse O2 O2 Flow FiO2 Ox Delivery Rate 10/10 0828 84 100/60 10/10 0600 98.4 89 18 112/70 95 Room Air 10/10 0416 98.5 91 18 104/60 95 Room Air 10/10 0208 98.5 92 18 100/64 94 Room Air 10/10 0009 98.1 102 20 110/62 94 Room Air 10/09 2200 98.1 89 16 114/70 95 Room Air 10/09 1656 131/78 10/09 1610 97.4 88 16 120/75 96 Room Air 10/09 1432 97.9 92 18 113/64 96 Room Air 10/09 1300 98.6 98 18 105/69 96 Room Air 10/09 1255 98.6 98 18 105/69 95 Room Air 10/09 1049 98.6 76 18 142/84 98 Room Air 10/09 0943 98.6 76 18 178/99 98 Room Air Intake & Output 10/10 1600 10/10 0800 10/10 0000 10/09 1600 10/09 0800 10/09 0000 Intake Total 960 365 Output Total 1300 320 Balance -340 365 -320 Intake, IV 600 225 Intake, Oral 360 140 Output, Urine 1300 320 Patient 185 lb 185 lb Weight Physical Exam: General: Alert and oriented x3, no acute distress Cardiac: RRR, s1s2 Pulm: CTA bilaterally Abdomen: Softly distended, hypoactive bowel sounds Extremities: Moves all extremities, distal sensation intact, motor 5/5 in plantar and dorsi flexion, no gross leg length discrepancy appreciated, no resting internal or external rotation of left leg, skin warm and well perfused, dp pulses palpable bialterally, bilateral calves soft and non-tender. Surgical site: Left thigh, dressing dry and intact, thigh compartment soft. Assessment/Plan Assessment/Plan This is a 75 year old male, POD 1, s/p ORIF left intertroch fracture, pmh of htn -Reglan iv now to promote gi motility -Colace and senna-s to start today for bowel regimen -OOB, pwb -Continue current pain regimen -DVT ppx to include lovenox -Will d/w Dr. Duran Core Measures/Miscellaneous Venous Thromboembolism VTE Risk Factors: Age > 40, Surgery VTE Contraindications: No Contraindications VTE Diagnosis: No VTE Type: NONE VTE Confirmed by (Test): NONE Beta Alessandro Is Beta Alessandro a Home Med? No Antibiotics Is Patient on Antibiotics? Yes If Yes: prophylaxis
[2016-10-10 08:40] LABS: WHITE BLOOD CELL COUNT 12.7 /CUMM (4.8-10.8)
--- NOTE | 2016-10-11 | NUR ---
PT HAS PERIODS OF CONFUSION. WHEN REVIEWING 2199 MEDICATIONS, PT KNEW EACH MEDICATION AND WHAT THEY WERE FOR. AxOx3. WHEN I CAME BACK WITH THE MEDICATIONS, HE WANTED TO KNOW IF THE VALIUM WAS MINE OR HIS. PT SLEEPING AT THIS TIME. WILL CONTINUE TO MONITOR THIS SHIFT.
[2016-10-11 06:31] VITALS: BP 108/64
--- NOTE | 2016-10-11 07:22 | PN- Orthopedic ---
See Addendum Subjective Subjective: 75-year-old male postop day 2 status post left hip ORIF secondary to intertrochanteric fracture. He is doing well postoperatively. He has no complaints here and his pain is controlled. Objective Vital Signs and I&Os Vital Signs Date Time Temp Pulse Resp B/P Pulse O2 O2 Flow FiO2 Ox Delivery Rate 10/11 0631 98.5 90 18 108/64 96 Room Air 10/10 2239 98.6 85 20 104/60 93 Room Air 10/10 1850 98.9 95 20 96/70 94 Room Air 10/10 1422 98.3 100 20 125/70 95 Room Air 10/10 1141 Room Air 10/10 1136 97.0 95 20 100/60 97 Room Air 10/10 1130 Room Air 10/10 0828 84 100/60 Intake & Output 10/11 0800 10/11 0000 10/10 1600 10/10 0800 10/10 0000 10/09 1600 Intake Total 145 341 2243 960 365 Output Total 1100 341 834 7781 320 Balance -902 567 9086 -340 365 -320 Intake, IV 200 200 600 600 225 Intake, Oral 240 240 600 360 140 Number 0 Bowel Movements Output, Urine 1100 050 316 2234 320 Patient 185 lb 185 lb Weight Physical Exam: Well-developed well-nourished no apparent distress. HEENT: Atraumatic, extraocular motion intact Neck: Supple, no lymphadenopathy Respiratory: No respiratory distress Extremities: No edema Left lower extremity hip dressing in place, , dressing changed Incision without erythema Minimal thigh edema No signs of infection. No shortening or rotation Hip range of motion is limited and without unexpected pain Neurovascularly intact distally Bilateral calves are supple, nontender. Neuro: Alert and oriented x3 Psych: Mood affect normal, normal memory normal judgment. Skin: Warm and dry, no rash on exposed skin Assessment/Plan Assessment/Plan This is a 75 year old male, POD 2, s/p ORIF left intertroch fracture -Physical therapy partial weightbearing out of bed today -Colace and senna -OOB, pwb -Continue current pain regimen -Dressing changed today, nursing staff May change daily starting tomorrow morning -DVT ppx to include lovenox -CBC pending for today -Plan for discharge tomorrow if medically stable Core Measures/Miscellaneous Venous Thromboembolism VTE Risk Factors: Age > 40, Surgery VTE Contraindications: No Contraindications VTE Diagnosis: No VTE Type: NONE VTE Confirmed by (Test): NONE Beta Alessandro Is Beta Alessandro a Home Med? No Antibiotics Is Patient on Antibiotics? Yes If Yes: prophylaxis
[2016-10-11 08:05] LABS: ABSOLUTE BASOPHIL COUNT 0 /CUMM (0.0-0.2); ABSOLUTE EOSINOPHIL COUNT 0.1 /CUMM (0.0-0.7); ABSOLUTE GRANULOCYTE CT 10.6 /CUMM (1.4-6.5); ABSOLUTE LYMPH COUNT 1.3 /CUMM (1.2-3.4); BASOPHIL % 0.2 % (0.0-2.0); EOSINOPHIL % 0.5 % (0-5); GRANULOCYTE % 81.8 % (42.2-75.2); HEMATOCRIT 27.9 % (42-52); MEAN CORPUSCULAR HGB 30.1 PG (27.0-31.0); MEAN CORPUSCULAR HGB CONC 33.2 G/DL (33.0-37.0); MEAN CORPUSCULAR VOLUME 90.6 FL (80.0-94.0); MEAN PLATELET VOLUME 8.2 FL (7.4-10.4); PLATELET COUNT 177 /CUMM (130-400); RED BLOOD CELL CT 3.07 /CUMM (4.70-6.10)
--- NOTE | 2016-10-11 10:47 | Surgical Discharge Summary ---
Visit Information Visit Dates Admission Date: 10/09/16 Discharge Date: 10/13/16 History of Present Illness Chief Complaint: Left intertrochanteric hip fracture Medical History Neurological: NONE EENT: NONE Cardiovascular: hypertension, hyperlipidemia Respiratory: NONE Gastrointestinal: NONE Hepatic: NONE Renal: NONE Musculoskeletal: NONE Psychiatric: anxiety, depression Endocrine: NONE Blood Disorders: NONE Cancer(s): NONE RISK INTERN/Reproductive: NONE History of MRSA: No History of VRE: No History of CDIFF: No Isolation History: Standard Influenza Vaccine: 10/10/16 Surgical History Pertinent Surgical History: spinal fusion, RIGHT HIP REPLACEMENT LEFT KNEE REPLACEMENT Bilateral Shoulder Replacements Psychosocial History Where Do You Live? Home Services at Home: None What is Your Primary Language? Khmer ETOH Use: occasional use Review of Systems: see h&p Hospital Course Course Attending Physician: FARZANEH SUAREZ MD Primary Care Physician: LESLIE HORVATH MD, I. Hospital Course: Patient is a 75 year old male with a past medical history of anxiety, hypertension, hyperlipidemia, right hip replacement, left knee replacement, bilateral total shoulder replacements, cervical and lumbar spinal fusions, who had a mechanical fall tripping on his rug in his private residence where he landed to the left aspect of his hip to the ground, without any preceding episode of lightheadedness or dizziness, and without head strike or loss of consciousness. He apparently had another mechanical fall 5 weeks prior to this. He was found to have a left intertrochanteric hip fracture when he presented to the ED on 10/09/16, and was taken to the OR after being cleared by the medical team on the same day. did a left hip open reduction and stabilization with dynamic hip screw/side plate, which was uneventful. Lovenox 40 mg sc daily was initiated post-operatively for blood clot risk reduction, which should be continued for 4-6 weeks. He was somewhat confused / delirious post-operatively, which seemed to improved after stopping iv morphine. There was a slight increase in his creatinine from 1 to 1.5 on post-op day#2, for which he was given additional iv fluids and will have labs rechecked in the morning prior to his discharge to short term rehab. His weight bearing status is toe touch weight bearing, and has been seen & evaluated by PT. His dressing was changed daily starting on post-op day#2. Discharge to short term rehab is anticipated for post -op day#3, 10/12/16. Complications: None Allergies: Coded Allergies: Penicillins (Severe, ANAPHYLAXIS 10/09/16) Disposition Summary Disposition Principal Diagnosis: Left intertrochanteric hip fracture Additional Diagnosis: s/p Left hip open reduction and stabilization with dynamic hip screw/side plate (10/09/16) Discharge Disposition: SNF Discharge Instructions General Discharge Information Code Status: Full Code Patient's Diet: regular, as tolerated Patient's Activity: toe touch weight bearing Follow-Up Instructions/Appts: dry guaze dressing change daily, left hip staple removal around post-op day#14 continue lovenox 40 mg sc daily, to complete 4-6 weeks as per continue PT, toe touch weight bearing call to schedule follow up appointment with within 3-4 weeks after discharge Medications at Discharge Discharge Medications: Continue taking these medications: Testosterone (Androgel) 40.5 MG/2.5 GRAM (1.62 %) GEL.PACKET 1 Packet On the skin Qty = 75 Diazepam (Diazepam) 5 MG TABLET 1 Tablet ORAL 2 x Daily as needed as needed for ANXIETY Qty = 90 Amlodipine Besylate (Amlodipine Besylate) 5 MG TABLET 1 Tablet ORAL DAILY Qty = 30 Simvastatin (Simvastatin*) 20 MG TABLET 1 Tablet ORAL DAILY Qty = 90 Zolpidem Tartrate (Zolpidem Tartrate) 10 MG TABLET 1 Tablet ORAL Every night Qty = 30 Start taking the following new medications: Docusate Sodium (Docusate Sodium) 100 MG CAPSULE 100 Milligram ORAL TWICE DAILY as needed for CONSTIPATION Days = 14 No Refills Enoxaparin Sodium (Lovenox) 40 MG/0.4 ML SYRINGE 40 Milligram Inject into fatty tissue DAILY Qty = 30 No Refills Instructions: COMPLETE 4-6 WEEKS PER Oxycodone HCl (Oxycodone HCl) 5 MG TABLET 5 Milligram ORAL EVERY 4 HOURS NEEDED as needed for PAIN SCALE 1-3 (MILD) Qty = 30 No Refills Oxycodone HCl (Oxycodone HCl) 5 MG TABLET 10 Milligram ORAL EVERY 4 HOURS NEEDED as needed for PAIN SCALE 4-6 ( MODERATE) Qty = 30 No Refills Sennosides/Docusate Sodium (Senna Plus Tablet) 8.6 MG-50 MG TABLET 1 Tablet ORAL TWICE DAILY as needed for CONSTIPATION Days = 14 No Refills Copies To: YULIET ZENDEJAS,LESLIE Mccoy
[2016-10-11] MEDS ORDERED: DOCUSATE SODIU100 M3 PO (11:18)
--- NOTE | 2016-10-11 11:18 | Patient Discharge Instructions ---
Discharge Instructions General Discharge Information You were seen/treated for: Left intertrochanteric hip fracture You had these procedures: Surgery Date: 10/09/16 Name of Procedure: Left hip open reduction and stabilization with dynamic hip screw/side plate Watch for these problems: FEVER>101.3, INCREASED PAIN, REDNESS/SWELLING/DRAINAGE Call Surgeon to remove: [place] (POST-OP DAY#14) No bath, but you may shower: Yes Other wound care: DRY GUAZE DRESSING CHANGES DAILY, LEFT HIP Special Instructions: please blood work drawn in couple of days as prescribed on script Diet Continue normal diet: Yes Recommended Diet: Regular Activity Full Activity/No Limits: No (toe touch weight bearing for 2) Activity Self Limited: No Activity Limited to: Walking with Assistance (toe touch weight bearing only) Other activity limits: TOE TOUCH WEIGHT BEARING Acute Coronary Syndrome Inclusion Criteria At DC or during hospital stay patient has or had the following: ACS DIAGNOSIS No Discharge Core Measures Meds if any: Prescribed or Continued at Discharge CEASAR/ARB if EF <40% No Aspirin No Beta-Alessandro No Statin Yes Meds if any: NOT Prescribed or Continued at Discharge Congestive Heart Failure Inclusion Criteria At DC or during hospital stay patient has or had the following: CHF DIAGNOSIS No Discharge Core Measures Meds if any: Prescribed or Continued at Discharge Meds if any: NOT Prescribed or Continued at Discharge Cerebrovascular accident Inclusion Criteria At DC or during hospital stay patient has or had the following: CVA/TIA Diagnosis No Discharge Core Measures Meds if any: Prescribed or Continued at Discharge Meds if any: NOT Prescribed or Continued at Discharge Venous thromboembolism Inclusion Criteria VTE Diagnosis No VTE Type NONE VTE Confirmed by (Test) NONE Discharge Core Measures - Per Current guidelines, there needs to be overlap - treatment for the first 5 days of Warfarin therapy. - If discharged on Warfarin prior to 5 days of - overlap therapy, the patient will need to be - assessed for post discharge needs including - *Post discharge parental anticoagulation - *Warfarin and/or parental anticoagulation education - *Follow up date to check INR post discharge At least 5 days overlap therapy as Inpatient No Meds if any: Prescribed or Continued at Discharge Warfarin No Note: Overlap Therapy is Warfarin and Anticoagulant Meds if any: NOT Prescribed or Continued at Discharge No Warfarin d/t Prescribed other Anticoag
[2016-10-11] MEDS ORDERED: LOVENOX40 MG/0.1 SC (11:19)
[2016-10-11] MEDS ORDERED: OXYCODONE HCL5 M1 PO (11:19)
[2016-10-11] MEDS ORDERED: SENNA PLUS TAB1 EACH PO (11:20)
[2016-10-11 14:00] VITALS: BP 108/80
[2016-10-11 23:36] VITALS: BP 98/58
[2016-10-12 06:47] VITALS: BP 108/80
[2016-10-12 07:59] LABS: ABSOLUTE BASOPHIL COUNT 0 /CUMM (0.0-0.2); ABSOLUTE EOSINOPHIL COUNT 0.1 /CUMM (0.0-0.7); ABSOLUTE GRANULOCYTE CT 10.8 /CUMM (1.4-6.5); ABSOLUTE LYMPH COUNT 1.2 /CUMM (1.2-3.4); ABSOLUTE MONOCYTE COUNT 1.2 /CUMM (0.10-0.60); BASOPHIL % 0.2 % (0.0-2.0); GRANULOCYTE % 80.9 % (42.2-75.2); HEMATOCRIT 24.7 % (42-52); MEAN CORPUSCULAR HGB 30.1 PG (27.0-31.0); MEAN CORPUSCULAR HGB CONC 33.3 G/DL (33.0-37.0); MEAN CORPUSCULAR VOLUME 90.2 FL (80.0-94.0); MEAN PLATELET VOLUME 8.4 FL (7.4-10.4); PLATELET COUNT 166 /CUMM (130-400); RBC DISTRIBUTION WIDTH 13.9 % (11.5-14.5); RED BLOOD CELL CT 2.74 /CUMM (4.70-6.10); WHITE BLOOD CELL COUNT 13.3 /CUMM (4.8-10.8)
[2016-10-12] MEDS ORDERED: OXYCODONE HCL5 M1 PO (10:59)
--- NOTE | 2016-10-12 11:44 | PN- Orthopedic ---
Surgical Brief Attending Note Brief Attending Note: Patient seen this morning. Doing well, pain controlled while sitting and "not that bad" when up and ambulating. Compliant with toe touch weight bearing precautions. Denies abdominal pain but has not had a bowel movement since admission. A/P: 75yo M POD#3 left hip DHS for intertrochanteric hip fracture. Acute blood loss anemia and mild hyponatremia; vital signs stable. Elevated Cr resolved with IV fluids. Will recheck CBC and BMP in 2 days. Plan for discharge to rehab today. 1. TTWB LLE 2. Pain control, limit narcotics 3. Bowel regimen 4. Recheck CBC and BMP in 2 days 5. Lovenox 40mg qd for DVT prophylaxis 6. Follow up in clinic for reevaluation, staple removal in 2wks.
[2016-10-12 14:40] VITALS: BP 122/78
[2016-10-12 22:10] VITALS: BP 102/60
--- NOTE | 2016-10-13 06:21 | NUR ---
PT REFUSES REPOSITIONING FREQUENTLY, STATES " YOU MAKE ME FEEL BAD FOR NOT WANTING TO MOVE." WILL CONTINUE TO MONITOR THIS SHIFT.
[2016-10-13 06:40] VITALS: BP 126/52
--- NOTE | 2016-10-13 07:37 | PN- Orthopedic ---
See Addendum Subjective Subjective: POD #4 s/p L ORIF s/p IT hip fracture. Cleared for discharge but awaiting BM. no complaints at present. No N/V, F/C, CP/SOB. Passing flatus, no BM. Objective Vital Signs and I&Os Vital Signs Date Time Temp Pulse Resp B/P Pulse O2 O2 Flow FiO2 Ox Delivery Rate 10/13 0640 99.3 89 20 126/52 93 Room Air 10/12 2210 99.7 96 20 102/60 93 10/12 1440 99.8 99 18 122/78 10/12 0904 77 108/80 10/12 0800 Room Air Intake & Output 10/13 0800 10/13 0000 10/12 1600 10/12 0800 10/12 0000 10/11 1600 Intake Total 130 592 674 7649 1410 480 Output Total 700 423 859 7103 825 500 Balance -570 -150 -195 430 585 -20 Intake, IV 10 10 125 1050 1050 Intake, Oral 120 240 480 480 360 480 Number 0 0 Bowel Movements Output, Urine 700 742 763 3239 825 500 Physical Exam: Gen: AAOx3 in NAD Cor: S1+S2+ Lungs: CTA minh Abd: soft, NT, ND, +BS x4 Ext: left hip dressing changed. Incision C/D/I with bill. No drainage or erythema. Minimal tenderness to palpation. Dorsi and plantar flexion intact. Sensation intact. Palpable DP pulses minh. Feet warm. Current Medications: Current Medications Sig/Luis Start time Last Medication Dose Route Stop Time Status Admin Amlodipine Besylate 5 MG DAILY 10/10 1000 AC 10/12 PO 0904 Atorvastatin Calcium 10 MG 1700 10/10 1700 AC 10/12 PO 1721 Bisacodyl 20 MG ONCE ONE 10/13 0745 UNVr SD 10/13 0746 Bisacodyl 10 MG ONCE ONE 10/12 1115 DC SD 10/12 1116 Calcium Carbonate 500 MG .STK-MED ONE 10/12 2117 DC PO 10/12 2118 Calcium Carbonate 500 MG Q8P PRN 10/10 0815 AC 10/12 PO 212 Diazepam 5 MG Q12P PRN 10/09 2200 AC 10/12 PO 211 Docusate Sodium 100 MG BID 10/10 1000 AC 10/12 PO 2111 Enoxaparin Sodium 40 MG DAILY 10/10 1000 AC 10/12 SC 0902 Lactulose 20 GM ONCE ONE 10/13 0745 CAN PO 10/13 0746 Magnesium Citrate 40 ML ONE ONE 10/12 2100 DC 10/12 PO 10/12 2101 2210 Ondansetron HCl 4 MG Q6P PRN 10/09 1015 AC IV Oxycodone HCl 5 MG Q4P PRN 10/10 1615 AC 10/13 PO 0647 Oxycodone HCl 5 MG Q4P PRN 10/10 1615 AC 10/12 PO 0910 Patient Medication 1 ED .STK-MED ONE 10/12 1342 DC Teaching ED 10/12 1343 Senna/Docusate Sodium 2 TAB ONCE ONE 10/12 1245 DC 10/12 PO 10/12 1246 1256 Senna/Docusate Sodium 1 TAB BID 10/10 1000 AC 10/12 PO 2112 Results Last 48 Hours of Labs: Laboratory Tests 10/12 10/11 0615 1140 Chemistry Sodium (137 - 145 mmol/L) 133 L 131 L Potassium (3.5 - 5.1 mmol/L) 4.3 4.6 Chloride (98 - 107 mmol/L) 102 99 Carbon Dioxide (22 - 30 mmol/L) 24 24 Anion Gap (5 - 16) 7 8 BUN (9 - 20 mg/dL) 18 23 H Creatinine (0.7 - 1.2 mg/dL) 1.1 1.5 H Estimated GFR (>60 ml/min) > 60 46 L BUN/Creatinine Ratio (7 - 25 %) 16.4 15.3 Hematology CBC w Diff NO MAN DIFF REQ WBC (4.8 - 10.8 /CUMM) 13.3 H RBC (4.70 - 6.10 /CUMM) 2.74 L Hgb (14.0 - 18.0 G/DL) 8.2 L Hct (42 - 52 %) 24.7 L MCV (80.0 - 94.0 FL) 90.2 MCH (27.0 - 31.0 PG) 30.1 RDW (11.5 - 14.5 %) 13.9 Plt Count (130 - 400 /CUMM) 166 MPV (7.4 - 10.4 FL) 8.4 Gran % (42.2 - 75.2 %) 80.9 H Lymphocytes % (20.5 - 51.1 %) 9.0 L Monocytes % (1.7 - 9.3 %) 8.9 Eosinophils % (0 - 5 %) 1.0 Basophils % (0.0 - 2.0 %) 0.2 Absolute Granulocytes (1.4 - 6.5 /CUMM) 10.8 H Absolute Lymphocytes (1.2 - 3.4 /CUMM) 1.2 Absolute Monocytes (0.10 - 0.60 /CUMM) 1.2 H Absolute Eosinophils (0.0 - 0.7 /CUMM) 0.1 Absolute Basophils (0.0 - 0.2 /CUMM) 0 PUBS MCHC (33.0 - 37.0 G/DL) 33.3 Assessment/Plan Assessment/Plan A: POD #4 s/p L hip ORIF for hip fracture; AVSS. Awaiting BM. Plan: Dulcolax SD- patient agreeable. Continue PT mobilization. D/C to STR once has BM. Core Measures/Miscellaneous Venous Thromboembolism VTE Risk Factors: Age > 40, Surgery VTE Contraindications: No Contraindications VTE Diagnosis: No VTE Type: NONE VTE Confirmed by (Test): NONE Beta Alessandro Is Beta Alessandro a Home Med? No Antibiotics Is Patient on Antibiotics? Yes If Yes: prophylaxis
[2016-10-13 14:56] VITALS: BP 100/60
[2016-10-13 15:01] VITALS: BP 122/62
== END 2016-10-13 15:43 | DRG 482 ==
LOC: ENRESERVDT → ENRESERVTM → ERH 08:21 → ENPENDDIS 09:51 → ERHI 09:51 → 2NA 09:51
PROVIDERS: Nurse Practitioner; Physician Assistant; Physician Assistant Surgical; ADMIT Orthopaedic Surgery Sports Medicine
PROC: 0QS704Z Reposition Left Upper Femur with Internal Fixation Device, Open Approach (ICD-10-PCS; principal; 2016-10-09)
DX: S72.142A Displaced intertrochanteric fracture of left femur, initial encounter for closed fracture (principal); I10 Essential (primary) hypertension; F41.9 Anxiety disorder, unspecified; E78.5 Hyperlipidemia, unspecified; F32.9 Major depressive disorder, single episode, unspecified; W01.0XXA Fall on same level from slipping, tripping and stumbling without subsequent striking against object, initial encounter; Y92.009 Unspecified place in unspecified non-institutional (private) residence as the place of occurrence of the external cause; Z87.891 Personal history of nicotine dependence; Z91.81 History of falling
CPT/HCPCS: 2NASP; 36415; 73502-LT; 73562-LT; 82436; 93005; 93010; 96374; 96376; 97110-GO; 97112-GO; 97116-GO; 97161-GP; 97165-GO; 97530-GO; J0131; J1100; J1200; J1650; J2405; J2550; J2765; J7042; Q2036